=== PATIENT | female | born 1975 | race Caucasian/White ===

== ENCOUNTER 2021-05-04 03:16 | Emergency (ER) | payer OTHER ==
[~2021-05-04] VITALS: Ht 170.2 cm; Wt 61.2 kg
[~2021-05-04 03:16] MED LIST: NEURONTIN300 MG PO; PERCOCET 5/3251 TAB PO; POLY119PG PO; ZOFRAN ODT4 MG/UDTAB PO
[2021-05-04] MEDS ORDERED: PERCOCET 5-3251 EACH PO (07:52)
[2021-05-04] MEDS ORDERED: PEPCID AC20 MG PO (07:52)
[2021-05-04] MEDS ORDERED: KETO10TA2 PO (07:52)
== END 2021-05-04 08:05 | disposition home or self-care (01) ==
LOC: ER 03:16
DX: N83.201 Unspecified ovarian cyst, right side (principal); K59.00 Constipation, unspecified; R10.31 Right lower quadrant pain; Z88.0 Allergy status to penicillin